=== PATIENT | female | born 1950 | race Caucasian/White ===

== ENCOUNTER → 2017-07-01 | Outpatient (CLI) | payer OTHER ==
--- NOTE | 2017-07-01 11:34 | DIAGNOSTIC IMAGING REPORT ---
[facility]UB CLINICAL HISTORY: 67 years-old Female presenting with hematuria, history of renal calculi. TECHNIQUE: Single supine view of the abdomen was obtained. COMPARISON: None. FINDINGS: Allowing for the presence of gas and stool, questionable calcifications project over the upper pole of the left kidney. However, these are only visible on one projection. No radiographic evidence of right renal calculi. No calcifications along the courses of the ureters. Multiple pelvic phleboliths noted. Correlation to prior examinations would be helpful to exclude distal ureteral calculus. Nonobstructive bowel gas pattern with mild stool burden in the right and left colon. Osseous structures normal. Lung bases clear. IMPRESSION: 1. Possible left renal calculi. This be better assessed with noncontrast CT. Correlation with prior radiographs or CT would be helpful to distinguish pelvic phleboliths from ureteral calculi. Electronically signed by: Obie Rodriguez M.D. 07/01/2017 11:33 AM Dictated Date/Time: 07/01/2017 11:31 AM
== END | disposition home or self-care (01) ==
LOC: C.RAD 11:10
PROVIDERS: ATTEND Nurse Practitioner Family
DX: N20.0 Calculus of kidney (principal)